=== PATIENT | female | born 1995 | race Hispanic/Latino ===

== ENCOUNTER 2025-06-30 13:21 | Inpatient (IN) | payer SELFPAY ==
[2025-06-30] MEDS ORDERED: Acetaminophen 500 MG TAB PO PRN (13:37)
[2025-06-30] MEDS ORDERED: Diphenoxylate HCl/Atropine Tablet PO PRN (13:37)
[2025-06-30] MEDS ORDERED: Ibuprofen 800 MG TAB PO PRN (13:37)
[2025-06-30] MEDS ORDERED: hydrALAZINE 20 MG/ML VIAL SLOW IVP PRN ×2 (13:37→17:20)
[2025-06-30] MEDS ORDERED: Ondansetron PF 4 MG/2 ML Vial IVP PRN (13:37)
[2025-06-30] MEDS ORDERED: Tranexamic Acid 1,000 MG/10 ML VIAL IVP PRN (13:37)
[2025-06-30] MEDS ORDERED: Methylergonovine 0.2 MG/ML VIAL IM PRN (13:37)
[2025-06-30] MEDS ORDERED: Carboprost 250 MCG/ML AMP IM PRN (13:37)
[2025-06-30] MEDS ORDERED: Oxytocin 30 units/NS 500 ML 500 ML IV SCH (13:45)
[2025-06-30 13:56] LABS: Hematocrit 33.1 % (34.9-44.5); Hemoglobin 10.9 g/dL (12.0-15.5); Mean Corpuscular Hemoglobin 28.7 pg (27.0-33.0); Mean Corpuscular Volume 87.1 fL (81.6-98.3); Platelet Count 286 10x3/uL (150-450); Red Blood Cell (RBC) Count 3.80 10x6/uL (3.90-5.03); White Blood Cell (WBC) Count 11.63 10x3/uL (3.5-10.5)
[2025-06-30 14:08] VITALS: BMI 35.9
[2025-06-30 14:29] LABS: Syphilis Antibody Index 0.04 S/CO (<1.00 Non-Reactive)
[2025-06-30 14:30] LABS: Hep B Surf Ag - L&D Non-Reactive S/CO (NonReactive)
[2025-06-30] MEDS: Lidocaine 1% (PF) 30 ML VIAL SC PRN (15:03)
[2025-06-30] MEDS ORDERED: Lanolin Ointment 7 GM TUBE TOP PRN (17:20)
[2025-06-30] MEDS ORDERED: Preparation H Ointment 28 GM TUBE PR PRN (17:20)
[2025-06-30] MEDS ORDERED: Milk Of Magnesia 30 ML UDCUP PO PRN (17:20)
[2025-06-30] MEDS ORDERED: Boostrix 0.5 ML (Tdap) VIAL (>/=7 yrs of age) IM ONE (17:20)
[2025-06-30] MEDS ORDERED: Benzocaine-Menthol 82.5 ML CAN TOP PRN (17:20)
[2025-06-30] MEDS ORDERED: Bisacodyl 10 MG SUPP PR PRN (17:20)
[2025-06-30] MEDS ORDERED: diphenhydrAMINE 25 MG CAP PO PRN (17:20)
[2025-06-30] MEDS: Ferrous Sulfate 325 MG TAB PO SCH (18:20)
[2025-06-30] MEDS: Ibuprofen 800 MG TAB PO SCH (21:14)
[2025-07-01] MEDS: Ferrous Sulfate 325 MG TAB PO SCH (09:09)
[2025-07-01 16:00] VITALS: BP 115/54; TEMP 99
== END 2025-07-01 16:45 | disposition home or self-care (01) | DRG 807 ==
LOC: EEVIPCON 13:21 → CSHLD 13:21 → CSHPP 17:19
PROVIDERS: ADMIT Obstetrics & Gynecology; ATTEND Obstetrics & Gynecology
PROC: 10E0XZZ Delivery of Products of Conception, External Approach (ICD-10-PCS; principal; 2025-06-30)
PROC: 0HQ9XZZ Repair Perineum Skin, External Approach (ICD-10-PCS; 2025-06-30)
DX: O70.0 First degree perineal laceration during delivery (principal); Z37.0 Single live birth; Z3A.39 39 weeks gestation of pregnancy
CPT/HCPCS: 51701; 85027; 86780; 86850; 86900; 86901; 87340; 99285; S3620